=== PATIENT | female | born 1965 | race Caucasian/White ===

== ENCOUNTER 2020-03-12 11:22 | Inpatient (IN) | payer SELFPAY ==
[2020-03-12] VITALS (13 sets, daily range): BP systolic 75–115; BP diastolic 51–67; PULSE 90–106; RESP 18–32; TEMP 37–39.1; O2SAT 91–99; BMI 24.3
--- NOTE | 2020-03-12 11:44 | XRR_ITS ---
PROCEDURE INFORMATION: Exam: XR Right Femur Exam date and time: 03/12/2020 12:11 PM Age: 54 years old Clinical indication: Other: Insect bite, foreign body TECHNIQUE: Imaging protocol: XR Right femur. Views: 2 views. COMPARISON: No relevant prior studies available. FINDINGS: Bones/joints: There is no acute fracture or dislocation. Mild degenerative changes of the right hip are noted. Soft tissues: No definite radiopaque foreign body is identified. XR/XR femur RT min 2V* [id number] IMPRESSION: No acute abnormality.
--- NOTE | 2020-03-12 12:13 | W.ED.GENADLT ---
HPI - General Adult General: Chief complaint: General Medical Stated complaint: insect bite Time Seen by Provider: 03/12/20 11:40 Source: patient Mode of arrival: ambulatory Limitations: no limitations History of Present Illness: HPI narrative: Dnoa is a 54-year-old female who comes in complaining of a bite to her right anterior thigh. She has area of ecchymosis surrounding by swelling and some mild erythema. She does not remember being poked with anything or having a puncture wound. She is uncertain what it is that may have bitten her. Patient had a fever last night up to 101. She is been nausea but denies any vomiting, chills, dysuria, cough, headache or other complaint. She is unaware of anything that makes her symptoms better or worse. She denies having any chronic medical problems or surgeries. Associated symptoms: Reports nausea and rash; Deny chest pain, dyspnea, headache(s), palpitations, syncope or vomiting Review of Systems Const: Reports: fever(s) Eyes: Denies: change in vision ENMT: Denies: throat pain Card: Denies: chest pain, palpitations, syncope, pre-syncope or dyspnea on exertion Resp: Denies: dyspnea, productive cough or non-productive cough GI: Reports: nausea; Denies: abdominal pain, vomiting or diarrhea : Denies: flank pain, dysuria, urinary frequency or urinary urgency Musc: Denies: neck pain, back pain or extremity pain Skin/Breast: Reports: rash; Denies: pruritus Neuro: Denies: headache(s), numbness in extremities, weakness in extremities or dizziness Alo/Lymph: Denies: easy bruising or easy bleeding All/Imm: Denies: urticaria PFSH ED PFSH: Medical History No active medical problems Surgical History (Updated 03/12/20 @ 16:09 by Gagandeep Masterson MD) History of No history of previous surgery Family History (Updated 03/12/20 @ 16:09 by Gagandeep Masterson MD) Other Cancer Social History (Updated 03/12/20 @ 16:09 by Gagandeep Masterson MD) Smoking and tobacco status: current every day smoker Alcohol intake: current Alcohol intake frequency: few times a month Substance/Drug Use: never Physical Exam Const: COMMON NORMALS: no acute distress, patient oriented x3, no limitations, healthy appearing and well nourished GENERAL APPEARANCE: cooperative, well kempt and well developed HENMT: COMMON NORMALS: normocephalic, atraumatic, external ears normal, EAC's normal and Normal external nose present HEAD & SCALP: normal to inspection, normocephalic and atraumatic FACE & SINUS: normal facial exam and face symmetric NOSE: Normal external nose present and Normal nares present EXTERNAL EAR: Yes external ears normal EXTERNAL AUDITORY CANAL: EAC's normal MOUTH: Normal oral and palatal mucosa present, lip normal and tongue normal Eye: COMMON NORMALS: Equal, round and reactive pupils present and conjunctivae normal GENERAL EYE: appearance normal, both eyes and all related structures ALIGNMENT: Yes alignment normal PERIORBITAL: periorbital findings normal EYELID: eyelids normal CONJUNCTIVA: Yes conjunctivae normal SCLERA: sclerae normal PUPIL: Yes Equal, round and reactive pupils present Neck/C-Spine: COMMON NORMALS: full ROM, no lymphadenopathy, supple, no meningeal signs and no JVD GENERAL: Yes normal visual inspection and Yes trachea midline Chest: COMMONS NORMALS: normal inspection of the chest and normal palpation of entire chest wall Resp: COMMON NORMALS: normal respiratory effort, No retractions and No use of accessory muscles EFFORT & INSPECTION: Yes able to speak in complete sentences and Yes symmetric chest movement AUSCULTATION: no crackles, no rales, no rhonchi and no wheezes Cardio: COMMON NORMALS: no JVD, regular rate, regular rhythm, S1 normal heart sound present and S2 normal heart sound present RATE: regular rate RHYTHM: regular rhythm HEART SOUNDS: S1 normal heart sound present, S2 normal heart sound present, no click, no gallops, no murmurs, no rubs and abnormal split S2 GI: COMMON NORMALS: Soft to palpation and No hepatosplenomegaly present PALPATION: Yes Soft to palpation, No Tenderness to palpation present (GI), No Guarding due to palpation present (GI), No Rigid due to palpation, Yes No hepatosplenomegaly present, No Hernia present, No Palpable mass present and No Pulsatile mass present : COMMON NORMALS: Yes no CVA tenderness BLADDER/KIDNEY EXAM: Yes no CVA tenderness EXTERNAL FEMALE EXAM: No Hernia present Back/Pelvis: COMMON NORMALS: no CVA tenderness, thoracic and lumbar spine normal to inspection, no thoracic nor lumbar tenderness and thoraco-lumbar ROM normal Extremity: COMMON NORMALS: normal to inspection, full ROM, capillary refill normal, no joint enlargement, no clubbing, cyanosis or edema and no calf tenderness Neuro: COMMON NORMALS: patient oriented x3, CN's II-XII intact bilaterally, moves all extremities, no focal motor deficits and no sensory deficits noted MENINGEAL SIGNS: Yes no meningeal signs SPEECH: speech normal Psych: COMMON NORMALS: mental status grossly normal, Normal thought process present, cooperative, normal affect, speech normal and activity/motor behavior normal APPEARANCE: Yes well kempt SPEECH: Yes normal speech THOUGHT PROCESS: Normal thought process present Skin: COMMON NORMALS: no jaundice, no petechiae and no mottling NARRATIVE SKIN EXAM: Small area of ecchymosis surrounded by a large area of erythema and raised tissue on the anterior right thigh. No evidence of abscess by palpation. No fluctuance. No petechiae or purpura. Course Vital Signs: Vital signs: Vital Signs Temperature 99.0 F 03/12/20 20:00 Pulse Rate 95 03/12/20 20:00 Respiratory Rate 20 H 03/12/20 20:00 Blood Pressure 105/63 03/12/20 20:00 Pulse Oximetry 97 03/12/20 20:00 MDM - General Adult MDM Narrative: Medical decision making narrative: Upon doing some basic investigation prior to discharge the patient became diaphoretic, borderline febrile and hypotensive. Concerned that this bite may have caused some type of systemic reaction or envenomation. A systemic reaction to a brown recluse spider bite among other things as possible. The patient is adamant it is no snakebite and I do not see 2 fang gomez. I have given her a load of antibiotics along with vancomycin and Zosyn. I have contacted Dr. Masterson he will come to evaluate the patient in the ER. Lab Data: Attestation: I reviewed the patient's lab results. Labs: Lab Results 03/12/20 03/12/20 03/12/20 Range/Units 12:35 12:35 12:35 WBC 15.6 H (4.0-10.0) 10^3/ uL RBC 4.46 (4.1-5.3) 10^6/u L Hgb 13.1 (11.5-15.3) g/dL Hct 41.3 (37.0-47.0) % MCV 92.6 (81-99) fL MCH 29.4 (28.0-34.0) pg MCHC 31.7 (30.0-36.0) g/dL RDW 13.6 (12.1-15.1) % Plt Count 204 (130-400) 10^3/c mm MPV 10.7 H (7.4-10.4) fL Neut % (Auto) 96.3 % Lymph % (Auto) 1.2 % [place] % (Auto) 1.0 % Eos % (Auto) 0.6 % Baso % (Auto) 0.3 % Neut # (Auto) 15.0 H (1.8-7.7) 10^3/u L Lymph # (Auto) 0.2 L (0.8-4.8) 10^3/u L [place] # (Auto) 0.2 (0.2-0.9) 10^3/u L Eos # (Auto) 0.1 (0.0-0.8) 10^3/u L Baso # (Auto) 0.0 (0.0-0.1) 10^3/u L Nucleated RBC % (a uto) 0 % Nucleated RBCs # 0.0 /100WBC Haptoglobin (30-200) mg/L PT 17.10 H (10.5-13.3) SECO NDS INR 1.35 H (0.8-1.2) APTT 29.4 (23.9-36.7) SECO NDS Sodium 138 (136-145) mmol/L Potassium 3.6 (3.5-5.1) mmol/L Chloride 99 (98-107) mmol/L Carbon Dioxide 21 L (22-29) mmol/L Anion Gap 21.6 H (5-19) BUN 16 (6-20) mg/dL Creatinine 1.0 H (0.5-0.9) mg/dL GFR Calculation 57.6 L (90-130) mL/min Glucose 101 (65-115) mg/dL Calculated Osmolal ity 282 L (285-295) mOsm/k g Lactic Acid (0.5-2.2) mmol/L Calcium 9.4 (8.5-10.5) mg/dL Magnesium (1.7-2.3) mg/dL Total Bilirubin 1.3 H (0.15-1.2) mg/dL AST 115 H (0-32) U/L ALT 87 H (0-33) U/L Alkaline Phosphata se 83 (35-105) IU/L Lactate Dehydrogen ase (135-214) U/L Creatine Kinase (26-192) U/L Troponin T Baselin e (0-10) ng/L Troponin T 120 Min elim ira (0-10) ng/L Delta Troponin T (0-10) ABS# Total Protein 7.3 (6.6-8.7) g/dL Albumin 4.4 (3.5-5.2) g/dL Globulin 2.9 (1.3-4.6) g/dL Procalcitonin (0-0.5) ng/mL Urine Color (Yellow) Urine Appearance (CLEAR) Urine pH (5-7) Ur Specific Gravit y (1.005-1.030) Urine Protein (Negative) Urine Glucose (UA) (Normal) Urine Ketones (Negative) Urine Blood (Negative) Urine Nitrate (Negative) Urine Bilirubin (NEGATIVE) Urine Urobilinogen (Negative) mg/dL Ur Leukocyte Shea ase (Negative) Urine RBC (0-2) /hpf Urine WBC (0-5) /hpf Ur Squamous Epith Cells (0-5) Ur Transition Epit h Cell /hpf Urine Bacteria (NONE) Hepatitis A IgM Ab (Nonreactive) Hep Bs Antigen (Nonreactive) Hep Bs Antibody (0-8.5) Hep B Core Total A b (Nonreactive) Hepatitis C Antibo dy (Nonreactive) 03/12/20 03/12/20 03/12/20 Range/Units 12:35 12:35 14:30 WBC (4.0-10.0) 10^3/ uL RBC (4.1-5.3) 10^6/u L Hgb (11.5-15.3) g/dL Hct (37.0-47.0) % MCV (81-99) fL MCH (28.0-34.0) pg MCHC (30.0-36.0) g/dL RDW (12.1-15.1) % Plt Count (130-400) 10^3/c mm MPV (7.4-10.4) fL Neut % (Auto) % Lymph % (Auto) % [place] % (Auto) % Eos % (Auto) % Baso % (Auto) % Neut # (Auto) (1.8-7.7) 10^3/u L Lymph # (Auto) (0.8-4.8) 10^3/u L [place] # (Auto) (0.2-0.9) 10^3/u L Eos # (Auto) (0.0-0.8) 10^3/u L Baso # (Auto) (0.0-0.1) 10^3/u L Nucleated RBC % (a uto) % Nucleated RBCs # /100WBC Haptoglobin (30-200) mg/L PT (10.5-13.3) SECO NDS INR (0.8-1.2) APTT (23.9-36.7) SECO NDS Sodium (136-145) mmol/L Potassium (3.5-5.1) mmol/L Chloride (98-107) mmol/L Carbon Dioxide (22-29) mmol/L Anion Gap (5-19) BUN (6-20) mg/dL Creatinine (0.5-0.9) mg/dL GFR Calculation (90-130) mL/min Glucose (65-115) mg/dL Calculated Osmolal ity (285-295) mOsm/k g Lactic Acid 2.9 H (0.5-2.2) mmol/L Calcium (8.5-10.5) mg/dL Magnesium (1.7-2.3) mg/dL Total Bilirubin (0.15-1.2) mg/dL AST (0-32) U/L ALT (0-33) U/L Alkaline Phosphata se (35-105) IU/L Lactate Dehydrogen ase (135-214) U/L Creatine Kinase (26-192) U/L Troponin T Baselin e 6 (0-10) ng/L Troponin T 120 Min elim ira (0-10) ng/L Delta Troponin T (0-10) ABS# Total Protein (6.6-8.7) g/dL Albumin (3.5-5.2) g/dL Globulin (1.3-4.6) g/dL Procalcitonin (0-0.5) ng/mL Urine Color Brown (Yellow) Urine Appearance Cloudy (CLEAR) Urine pH 5 (5-7) Ur Specific Gravit y 1.020 (1.005-1.030) Urine Protein Trace (Negative) Urine Glucose (UA) Norm (Normal) Urine Ketones 1+ H (Negative) Urine Blood 2+ H (Negative) Urine Nitrate Negative (Negative) Urine Bilirubin 1+ H (NEGATIVE) Urine Urobilinogen 4 H (Negative) mg/dL Ur Leukocyte Shea ase 2+ H (Negative) Urine RBC 5-10 H (0-2) /hpf Urine WBC 25-40 H (0-5) /hpf Ur Squamous Epith Cells 15-25 H (0-5) Ur Transition Epit h Cell 0-4 /hpf Urine Bacteria 2+ H (NONE) Hepatitis A IgM Ab (Nonreactive) Hep Bs Antigen (Nonreactive) Hep Bs Antibody (0-8.5) Hep B Core Total A b (Nonreactive) Hepatitis C Antibo dy (Nonreactive) 03/12/20 03/12/20 03/12/20 Range/Units 14:34 14:34 14:34 WBC (4.0-10.0) 10^3/ uL RBC (4.1-5.3) 10^6/u L Hgb (11.5-15.3) g/dL Hct (37.0-47.0) % MCV (81-99) fL MCH (28.0-34.0) pg MCHC (30.0-36.0) g/dL RDW (12.1-15.1) % Plt Count (130-400) 10^3/c mm MPV (7.4-10.4) fL Neut % (Auto) % Lymph % (Auto) % [place] % (Auto) % Eos % (Auto) % Baso % (Auto) % Neut # (Auto) (1.8-7.7) 10^3/u L Lymph # (Auto) (0.8-4.8) 10^3/u L [place] # (Auto) (0.2-0.9) 10^3/u L Eos # (Auto) (0.0-0.8) 10^3/u L Baso # (Auto) (0.0-0.1) 10^3/u L Nucleated RBC % (a uto) % Nucleated RBCs # /100WBC Haptoglobin 134.0 (30-200) mg/L PT (10.5-13.3) SECO NDS INR (0.8-1.2) APTT (23.9-36.7) SECO NDS Sodium (136-145) mmol/L Potassium (3.5-5.1) mmol/L Chloride (98-107) mmol/L Carbon Dioxide (22-29) mmol/L Anion Gap (5-19) BUN (6-20) mg/dL Creatinine (0.5-0.9) mg/dL GFR Calculation (90-130) mL/min Glucose (65-115) mg/dL Calculated Osmolal ity (285-295) mOsm/k g Lactic Acid (0.5-2.2) mmol/L Calcium (8.5-10.5) mg/dL Magnesium 1.4 L (1.7-2.3) mg/dL Total Bilirubin (0.15-1.2) mg/dL AST (0-32) U/L ALT (0-33) U/L Alkaline Phosphata se (35-105) IU/L Lactate Dehydrogen ase 259 H (135-214) U/L Creatine Kinase 71 (26-192) U/L Troponin T Baselin e (0-10) ng/L Troponin T 120 Min elim ira 6.06 (0-10) ng/L Delta Troponin T 0.06 (0-10) ABS# Total Protein (6.6-8.7) g/dL Albumin (3.5-5.2) g/dL Globulin (1.3-4.6) g/dL Procalcitonin (0-0.5) ng/mL Urine Color (Yellow) Urine Appearance (CLEAR) Urine pH (5-7) Ur Specific Gravit y (1.005-1.030) Urine Protein (Negative) Urine Glucose (UA) (Normal) Urine Ketones (Negative) Urine Blood (Negative) Urine Nitrate (Negative) Urine Bilirubin (NEGATIVE) Urine Urobilinogen (Negative) mg/dL Ur Leukocyte Shea ase (Negative) Urine RBC (0-2) /hpf Urine WBC (0-5) /hpf Ur Squamous Epith Cells (0-5) Ur Transition Epit h Cell /hpf Urine Bacteria (NONE) Hepatitis A IgM Ab Non-reactive (Nonreactive) Hep Bs Antigen Non-reactive (Nonreactive) Hep Bs Antibody 3.5 (0-8.5) Hep B Core Total A b Non-reactive (Nonreactive) Hepatitis C Antibo dy Non-reactive (Nonreactive) 03/12/20 Range/Units 14:34 WBC (4.0-10.0) 10^3/ uL RBC (4.1-5.3) 10^6/u L Hgb (11.5-15.3) g/dL Hct (37.0-47.0) % MCV (81-99) fL MCH (28.0-34.0) pg MCHC (30.0-36.0) g/dL RDW (12.1-15.1) % Plt Count (130-400) 10^3/c mm MPV (7.4-10.4) fL Neut % (Auto) % Lymph % (Auto) % [place] % (Auto) % Eos % (Auto) % Baso % (Auto) % Neut # (Auto) (1.8-7.7) 10^3/u L Lymph # (Auto) (0.8-4.8) 10^3/u L [place] # (Auto) (0.2-0.9) 10^3/u L Eos # (Auto) (0.0-0.8) 10^3/u L Baso # (Auto) (0.0-0.1) 10^3/u L Nucleated RBC % (a uto) % Nucleated RBCs # /100WBC Haptoglobin (30-200) mg/L PT (10.5-13.3) SECO NDS INR (0.8-1.2) APTT (23.9-36.7) SECO NDS Sodium (136-145) mmol/L Potassium (3.5-5.1) mmol/L Chloride (98-107) mmol/L Carbon Dioxide (22-29) mmol/L Anion Gap (5-19) BUN (6-20) mg/dL Creatinine (0.5-0.9) mg/dL GFR Calculation (90-130) mL/min Glucose (65-115) mg/dL Calculated Osmolal ity (285-295) mOsm/k g Lactic Acid (0.5-2.2) mmol/L Calcium (8.5-10.5) mg/dL Magnesium (1.7-2.3) mg/dL Total Bilirubin (0.15-1.2) mg/dL AST (0-32) U/L ALT (0-33) U/L Alkaline Phosphata se (35-105) IU/L Lactate Dehydrogen ase (135-214) U/L Creatine Kinase (26-192) U/L Troponin T Baselin e (0-10) ng/L Troponin T 120 Min elim ira (0-10) ng/L Delta Troponin T (0-10) ABS# Total Protein (6.6-8.7) g/dL Albumin (3.5-5.2) g/dL Globulin (1.3-4.6) g/dL Procalcitonin 3.14 H (0-0.5) ng/mL Urine Color (Yellow) Urine Appearance (CLEAR) Urine pH (5-7) Ur Specific Gravit y (1.005-1.030) Urine Protein (Negative) Urine Glucose (UA) (Normal) Urine Ketones (Negative) Urine Blood (Negative) Urine Nitrate (Negative) Urine Bilirubin (NEGATIVE) Urine Urobilinogen (Negative) mg/dL Ur Leukocyte Shea ase (Negative) Urine RBC (0-2) /hpf Urine WBC (0-5) /hpf Ur Squamous Epith Cells (0-5) Ur Transition Epit h Cell /hpf Urine Bacteria (NONE) Hepatitis A IgM Ab (Nonreactive) Hep Bs Antigen (Nonreactive) Hep Bs Antibody (0-8.5) Hep B Core Total A b (Nonreactive) Hepatitis C Antibo dy (Nonreactive) Imaging Data^: Right Femur: Radiologist's impression: [address] [address] XRay Report Signed Patient: Dona Rojas Unit #: [id number] : 1965 Age/Sex: 54 / F ADM Date: 03/12/20 Loc: ER Room/Bed: Attending Dr: Ordering Provider/Ordering MD: Tawny Canas DO Date of Service: 03/12/20 Procedure(s): XR femur RT min 2V* [id number] Accession Number(s): [id number] Report Number: [id number] PROCEDURE INFORMATION: Exam: XR Right Femur Exam date and time: 03/12/2020 12:11 PM Age: 54 years old Clinical indication: Other: Insect bite, foreign body TECHNIQUE: Imaging protocol: XR Right femur. Views: 2 views. COMPARISON: No relevant prior studies available. FINDINGS: Bones/joints: There is no acute fracture or dislocation. Mild degenerative changes of the right hip are noted. Soft tissues: No definite radiopaque foreign body is identified. XR/XR femur RT min 2V* 14585 IMPRESSION: No acute abnormality. Dictated By: Jesus Manuel Wild MD Signed By: Jesus Manuel Wild MD Signed Date/Time: 03/12/201249 DD/ 1248 Ultrasound soft tissue, Right Thigh: Radiologist's impression: [place] [address] Ultrasound Report Signed Patient: Dona Rojas Unit #: [id number] : 1965 Age/Sex: 54 / F ADM Date: 03/12/20 Loc: ER Room/Bed: Attending Dr: Ordering Provider/Ordering MD: Tawny Canas DO Date of Service: 03/12/20 Procedure(s): US soft tissue/extremity 79244 Accession Number(s): [id number] Report Number: [id number] WS: [id number] ULTRASOUND SOFT TISSUES RIGHT thigh HISTORY: Pain. Soft tissue wound. COMPARISON: None available. TECHNIQUE: 2-D and color Doppler imaging is submitted. Soft tissue edema in the area of the injury. There is no focal collection or large hematoma. No mass. US/US soft tissue/extremity [id number] IMPRESSION: Mild soft tissue edema at the site of the soft tissue injury. Dictated By: Justyna Brito DO Signed By: Justyna Brito DO Signed Date/Time: 03/12/20 125 DD/ 1249 EKG Data^: EKG 1: Attestation: I personally reviewed and interpreted this EKG as follows: EKG interpretation date: 03/12/20 EKG interpretation time: 14:00 Interpretation: Normal sinus rhythm 105 beats a minute, ST segment depression in 2, 3, aVF, V3 through V6. Computer generated interpretation: Femur X-Ray 03/12/20 11:44 IMPRESSION: No acute abnormality. Soft Tissue Ultrasound 03/12/20 12:29 IMPRESSION: Mild soft tissue edema at the site of the soft tissue injury. Abdomen Ultrasound 03/12/20 14:15 IMPRESSION: Normal complete abdomen ultrasound. Discharge Plan Discharge Patient Disposition: Admitted As Inpatient Admit Provider: Gagandeep Masterson Clinical Impression: Acute hypotension, Envenomation Condition: Stable Discharge Date/Time: 03/12/20 17:39 Coding Level of Care Code ED Incident Coordinator for Chg Fwd Exam Comprehensive
[2020-03-12] MEDS: amoxicillin-clav 875-125 mg Tablet 1 TAB PO (12:22)
[2020-03-12] MEDS: doxycycline 100 mg Tablet 200 MG PO (12:23)
[2020-03-12] MEDS: ondansetron 4 MG Tablet PO (12:23)
--- NOTE | 2020-03-12 12:29 | US_ITS ---
WS: [id number] ULTRASOUND SOFT TISSUES RIGHT thigh HISTORY: Pain. Soft tissue wound. COMPARISON: None available. TECHNIQUE: 2-D and color Doppler imaging is submitted. Soft tissue edema in the area of the injury. There is no focal collection or large hematoma. No mass. US/ soft tissue/extremity [id number] IMPRESSION: Mild soft tissue edema at the site of the soft tissue injury.
[2020-03-12] MEDS: lactated ringers 1,000 ML 999 ML IV (12:48)
[2020-03-12 13:10] LABS: Alanine Aminotransferase 87 U/L (0-33); Albumin Level 4.4 g/dL (3.5-5.2); Alkaline Phosphatase 83 IU/L (35-105); Anion Gap 21.6 (5-19); Aspartate Amino Transferase 115 U/L (0-32); Blood Urea Nitrogen 16 mg/dL (6-20); Calcium 9.4 mg/dL (8.5-10.5); Carbon Dioxide 21 mmol/L (22-29); Chloride 99 mmol/L (98-107); Globulin 2.9 g/dL (1.3-4.6); Glomerular Filtration Rate 57.6 mL/min (90-130); Glucose 101 mg/dL (65-115); Osmolality Calculated 282 mOsm/kg (285-295); Potassium 3.6 mmol/L (3.5-5.1); Sodium 138 mmol/L (136-145); Total Bilirubin 1.3 mg/dL (0.15-1.2); Total Protein 7.3 g/dL (6.6-8.7)
[2020-03-12 13:28] LABS: Basophils % 0.3 %; Eosinophils # 0.1 10^3/uL (0.0-0.8); Eosinophils % 0.6 %; Hematocrit 41.3 % (37.0-47.0); Hemoglobin 13.1 g/dL (11.5-15.3); Lymphocytes # 0.2 10^3/uL (0.8-4.8); Lymphocytes % 1.2 %; Mean Corpuscular HGB Conc 31.7 g/dL (30.0-36.0); Mean Corpuscular Hemoglobin 29.4 pg (28.0-34.0); Mean Corpuscular Volume 92.6 fL (81-99); Mean Platelet Volume 10.7 fL (7.4-10.4); Monocytes # 0.2 10^3/uL (0.2-0.9); Neutrophils % 96.3 %; Nucleated Red Blood Cells % 0 %; Platelet Count 204 10^3/cmm (130-400); Red Blood Count 4.46 10^6/uL (4.1-5.3); Red Cell Distribution Width 13.6 % (12.1-15.1); White Blood Count 15.6 10^3/uL (4.0-10.0)
[2020-03-12 13:33] LABS: Lactic Sepsis W/Reflex 2.9 mmol/L (0.5-2.2)
--- NOTE | 2020-03-12 13:47 | ECG_ITS ---
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 Measurements Intervals [place] Rate: 105 P: 66 PA: 151 QRS: 81 QRSD: 82 T: 12 QT: 279 QTc: 370 Interpretive Statements SINUS TACHYCARDIA WITH OCCASIONAL SUPRAVENTRICULAR PREMATURE COMPLEXES ST DEVIATION AND MODERATE T-WAVE ABNORMALITY, CONSIDER ANTEROLATERAL ISCHEMIA [-0.1+ mV T WAVE IN V3-V6] No previous ECG available for comparison Electronically Signed On 03-12-2020 23:45:06 CDT by Jean-Pierre Sinclair M.D. [id number] f
[2020-03-12 13:51] LABS: INR 1.35 (0.8-1.2); Partial Thromboplastin Time 29.4 SECONDS (23.9-36.7)
[2020-03-12] MEDS: piperacillin-tazobactam 3.375 GM in sodium chloride 0.9% (plus) 50 ML IV ×2 (13:55→20:22)
[2020-03-12 14:05] LABS: Troponin(5th) Baseline 6 ng/L (0-10)
[2020-03-12] MEDS: vancomycin 1,000 MG in sodium chloride 0.9% 250 ML 250 MG IV (14:05)
[2020-03-12] MEDS: ibuprofen 200 mg Tablet 400 MG PO (14:15)
--- NOTE | 2020-03-12 14:15 | US_ITS ---
WS: [id number] Complete ABDOMINAL ULTRASOUND HISTORY: Abdominal Pain COMPARISON: None available. Liver: 12.8 cm in length. Liver is normal size and echogenicity with no mass or intrahepatic dilatati on. Normal flow in the portal vein. Gallbladder: Normally distended with no gallstones, wall thickening or pericholecystic fluid. Gallbladder wall thickness: 0.2 cm. Pancreas: Normal size and echogenicity. CBD: 0.4 cm. Right kidney: 11.0 cm x 5.6 cm x 5.4 cm. No mass, cortical thickening or hydronephrosis. Left kidney: 11.3 cm x 5.3 cm x 5.0 cm. No mass, cortical thickening or hydronephrosis. Spleen: Normal size and echogenicity. Abdominal aorta and IVC are within normal limits. No ascites. US/US abdomen complete* [id number] IMPRESSION: Normal complete abdomen ultrasound.
[2020-03-12] MEDS: sodium chloride 0.9% 1,000 ML 150 ML IV ×2 (14:38→20:22)
[2020-03-12 14:57] LABS: Troponin 5 2HR 6.06 ng/L (0-10); Troponin 5 2HR Delta 0.06 ABS# (0-10)
[2020-03-12 15:12] LABS: Bilirubin Urine 1+ (NEGATIVE); Blood Urine 2+ (Negative); Glucose Urine UA Norm (Normal); Ketones Urine 1+ (Negative); Nitrate Urine Negative (Negative); Protein Urine Trace (Negative); Urine Appearance Cloudy (CLEAR); Urine Color Brown (Yellow); pH Urine 5 (5-7)
[2020-03-12 15:13] LABS: Leukocyte Esterase Urine 2+ (Negative); Urobilinogen Urine 4 mg/dL (Negative)
[2020-03-12 15:14] LABS: Squamous Epithelial Cell Urine 15-25 (0-5)
[2020-03-12 15:15] LABS: Add Urine Culture? No; Bacteria Urine 2+; Transitional Epi Cells Urine 0-4 /hpf; WBC Urine 25-40 /hpf (0-5)
[2020-03-12 15:19] LABS: Hepatitis A Antibody IgM Non-Reactive (Nonreactive); Hepatitis B Core AB, Total Non-Reactive (Nonreactive); Hepatitis B Surface AB 3.5 (0-8.5); Hepatitis B Surface Antigen Non-Reactive (Nonreactive); Hepatitis C Virus Antibody Non-Reactive (Nonreactive)
--- NOTE | 2020-03-12 15:47 | ECG_ITS ---
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 Measurements Intervals [place] Rate: 95 P: 62 ID: [id number] QRS: 86 QRSD: 85 T: 51 QT: 328 QTc: 413 Interpretive Statements SINUS RHYTHM NONSPECIFIC T-WAVE ABNORMALITY Compared to ECG 03/12/2020 14:00:45 Sinus tachycardia no longer present Possible ischemia no longer present T-wave abnormality still present Electronically Signed On 03-13-2020 17:14:17 CDT by Jaylin Canseco M.D. [id number]
[2020-03-12 16:02] LABS: Creatine Phosphokinase 71 U/L (26-192); Lactate Dehydrogenase 259 U/L (135-214); Magnesium 1.4 mg/dL (1.7-2.3)
--- NOTE | 2020-03-12 16:07 | P.HP_ITS ---
Providers/Chief Complaint Admitting Physician: Gagandeep Masterson MD Chief Complaint: insect bite History of Present Illness Dona Rojas is a 54 year old female who presents to the emergency department after having a fever, and noticing a bruise-like area on her right upper thigh. She does not remember any specific trauma, insect bite, spider bite. She states it itched slightly but has not been horribly painful. However, during her ultrasound she did have pain in that area, an episode of hypotension, and some diaphoresis. She denied any chest discomfort or shortness of breath. She reports no significant past medical history. She denies any cough or COVID exposure. Review of Systems General: Reports: 10 or more systems reviewed and unremarkable except in HPI and below Const: Reports: fever(s) and chills Eyes: Denies: change in vision ENMT: Denies: throat pain Card: Denies: chest pain Resp: Denies: dyspnea GI: Denies: abdominal pain : Denies: flank pain Musc: Reports: extremity pain Skin/Breast: Reports: rash Neuro: Denies: headache(s) Psych: Denies: anxiety Endo: Denies: polyuria All/Imm: Denies: urticaria Medications/Allergies Home Medications Medication Instructions Recorded Confirmed Last Taken Type No Known Home Medications 03/12/20 03/12/20 Unknown History Allergies Allergy/AdvReac Type Severity Reaction Status Date / Time No Known Allergies Allergy Verified 03/12/20 11:46 PFSH Acute PFSH: Medical History No active medical problems Surgical History (Updated 03/12/20 @ 16:09 by Gagandeep Masterson MD) History of No history of previous surgery Family History (Updated 03/12/20 @ 16:09 by Gagandeep Masterson MD) Other Cancer Social History (Updated 03/12/20 @ 16:09 by Gagandeep Masterson MD) Smoking and tobacco status: current every day smoker Alcohol intake: current Alcohol intake frequency: few times a month Substance/Drug Use: never Vitals/I&O/Wt Last Vital Signs Temp 102.4 F H 03/12/20 14:06 Pulse 95 03/12/20 15:31 Resp 25 H 03/12/20 15:31 BP 104/57 03/12/20 15:31 Pulse Ox 95 03/12/20 15:31 03/12/20 03/12/20 03/12/20 06:59 14:59 22:59 Intake Total 2150 / 2150 250 / 2400 Balance 2149 / 2149 250 / 2400 Weight last 48 hrs Weight 70.307 kg Physical Exam Narrative: EXAM NARRATIVE: General exam is a white female, in no apparent distress. She is febrile. She has received several boluses of fluids and her blood pressure is currently adequate and perfusion appears acceptable HEENT: Pupils equally round. Oropharynx clear. Neck is supple no lymphadenopathy or thyromegaly Cardiovascular regular rate and rhythm, no murmur. Lungs clear no wheezing or crackles Abdomen is soft with positive bowel sounds. No obvious organomegaly was deferred Extremities no cyanosis clubbing or edema. Small circular ecchymotic area right upper thigh with some surrounding induration is noted. Skin see above findings Neuro no focal deficits Sepsis: Is patient septic: Yes Focused sepsis exam performed: Yes Focused sepsis exam: Focused sepsis exam done. Date exam was performed: 03/12/20 Time exam was performed: 15:29 Data : 03/12/20 12:35 03/12/20 12:35 Other Labs: Initial EKG demonstrated sinus tachycardia, ST depression V3 through 6 as well as inferiorly Micro: Microbiology 03/12/20 13:20 Blood Culture - Preliminary Blood SPECIMEN COLLECTED 03/12/20 13:15 Blood Culture - Preliminary Blood SPECIMEN COLLECTED Other data: Urinalysis appears contaminated. Magnesium is low. INR elevated at 1.35. Liver function tests with elevated bilirubin, AST, ALT. Soft tissue ultrasound demonstrated edema but no obvious abscess. Femur x-ray negative. Initial troponin negative A&P Assessment and plan (1) Acute hypotension: Fluid resuscitation started in the emergency department secondary to elevated lactate, and hypotension. This is corrected her hypotension. Technically, she meets sepsis criteria with hypotension, leukocytosis, possible site of infection right thigh. I think this is likely secondary to envenomation from spider bite but cannot completely rule out bacterial infection at this time. Check haptoglobin, LDH, procalcitonin. Continue vancomycin and Zosyn currently. Status: Acute (2) Leukocytosis: See above, continue to monitor Status: Acute (3) Transaminitis: Check hepatitis panel, gallbladder ultrasound Status: Acute Additional A&P Information Full code SCDs for DVT prophylaxis. Concerned with elevated INR. Reevaluate in a.m. Attestations Medical Necessity Statement*: Will need greater than 2 midnight stay for treatment of hypotension, sepsis Time Spent in Patient Care: Greater than 35 minutes Coding Level of Care Code Acute Dragline Oiler for Chg Fwd Diagnoses Acute hypotension I95.9 Leukocytosis D72.829 Transaminitis R74.0
[2020-03-12] MEDS: magnesium sulfate premix 2 GM/50 ML PIGGYBACK IV (16:32)
[2020-03-12 17:17] LABS: Procalcitonin 3.14 ng/mL (0-0.5)
[2020-03-12 18:49] LABS: Troponin 5 6HR 8.72 ng/L (0-10); Troponin 5 6HR Delta 2.72 ng/L (0-12)
[2020-03-12] MEDS: ondansetron 2 mg/ML SDV 2 mL 4 MG IVP (22:49)
[2020-03-13] VITALS (8 sets, daily range): BP systolic 102–127; BP diastolic 58–74; PULSE 94–110; RESP 18–24; TEMP 37.3–39.3; O2SAT 94–99
[2020-03-13] MEDS: sodium chloride 0.9% 1,000 ML 150 ML IV ×3 (02:13→20:15)
[2020-03-13] MEDS: vancomycin 1,000 MG in sodium chloride 0.9% 250 ML 250 MG IV ×2 (02:13→13:04)
[2020-03-13] MEDS: piperacillin-tazobactam 3.375 GM in sodium chloride 0.9% (plus) 50 ML IV ×3 (03:57→21:54)
[2020-03-13] MEDS: acetaminophen 325 mg Tablet 650 MG PO ×2 (03:57→16:12)
[2020-03-13 05:30] LABS: Basophils % 0.3 %; Eosinophils # 0.1 10^3/uL (0.0-0.8); Eosinophils % 1.9 %; Hematocrit 33.2 % (37.0-47.0); Hemoglobin 10.7 g/dL (11.5-15.3); Lymphocytes # 0.2 10^3/uL (0.8-4.8); Lymphocytes % 2.5 %; Mean Corpuscular HGB Conc 32.2 g/dL (30.0-36.0); Mean Corpuscular Hemoglobin 29.7 pg (28.0-34.0); Mean Corpuscular Volume 92.2 fL (81-99); Mean Platelet Volume 11.6 fL (7.4-10.4); Monocytes # 0.1 10^3/uL (0.2-0.9); Neutrophils # 6.4 10^3/uL (1.8-7.7); Neutrophils % 92.7 %; Nucleated Red Blood Cells % 0 %; Platelet Count 144 10^3/cmm (130-400); Red Cell Distribution Width 13.5 % (12.1-15.1); White Blood Count 6.9 10^3/uL (4.0-10.0)
[2020-03-13 05:56] LABS: Alanine Aminotransferase 87 U/L (0-33); Albumin Level 3.1 g/dL (3.5-5.2); Alkaline Phosphatase 119 IU/L (35-105); Anion Gap 13.4 (5-19); Aspartate Amino Transferase 60 U/L (0-32); Blood Urea Nitrogen 12 mg/dL (6-20); Calcium 8.1 mg/dL (8.5-10.5); Carbon Dioxide 21 mmol/L (22-29); Chloride 106 mmol/L (98-107); Globulin 2.2 g/dL (1.3-4.6); Glomerular Filtration Rate 74.5 mL/min (90-130); Glucose 98 mg/dL (65-115); Osmolality Calculated 280 mOsm/kg (285-295); Potassium 3.4 mmol/L (3.5-5.1); Sodium 137 mmol/L (136-145); Total Bilirubin 2.5 mg/dL (0.15-1.2); Total Protein 5.3 g/dL (6.6-8.7)
[2020-03-13 06:13] LABS: INR 1.48 (0.8-1.2)
[2020-03-13 06:31] LABS: Lactate Dehydrogenase 292 U/L (135-214)
[2020-03-13] MEDS: ondansetron 2 mg/ML SDV 2 mL 4 MG IVP ×2 (09:04→16:45)
--- NOTE | 2020-03-13 09:37 | CT_ITS ---
WS: [id number] CT ABDOMEN AND PELVIS WITH CONTRAST HISTORY: nausea, elevated LFT's TECHNIQUE: Imaging performed of the abdomen and pelvis with IV contrast. Single phase imaging of the abdomen. Coronal and sagittal reformats are submitted. All CT scans at [facility] use at least one of these dose optimization techniques: automated exposure control; mA and/or kV adjustment per patient size (includes targeted exams where dose is matched to clinical indication); or iterativ e reconstruction. IV CONTRAST: Omnipaque 300; 95 mL IV. Oral contrast: No DLP: 729.13 mGy.cm COMPARISON: No similar studies. Lower thorax: Benign granulomata LEFT lung base. Heart is normal size. Small hiatal hernia. Liver/biliary system: Normal size liver. No bile duct dilatation. No mass. Gallbladder: Contracted gallbladder. There is mild hyperemia involving the gallbladder wall. Pancreas: Normal. Spleen: Normal. Adrenal glands: Normal. Right kidney: Normal. Left kidney: Negative. Extrarenal pelvis with no obstruction. Aorta: Mild atherosclerosis aorta with no aneurysm. Lymphadenopathy: None. Free fluid: Very small amount of free fluid in the RIGHT pelvis. GI tract: The appendix is not definitely identified. There are no inflammatory changes in the RIGHT l ower quadrant. High density material in the small bowel is likely medicinal. There are a few scattere d diverticula in the sigmoid colon with no acute inflammation. Abdominal wall: Unremarkable abdominal wall. No hernia. Pelvis: Normal CT appearance of the uterus. Normally distended urinary bladder. Bones: Mild straightening of the normal lumbar lordosis. CT/CT abdomen pelvis w con* [id number] IMPRESSION: 1. Contracted gallbladder with mild gallbladder wall hyperemia. No stones are identified. Evaluate for possible acalculous cholecystitis. 2. No common bile duct dilatation or intrahepatic duct dilatation. 3. Appendix not identified. 4. Small amount of free fluid in the RIGHT pelvis. 5. Mild atherosclerosis aorta.
[2020-03-13] MEDS: potassium chloride ER 10 mEq Tablet 40 MEQ PO (09:45)
--- NOTE | 2020-03-13 10:01 | PC.CHAP ---
Pastoral Care Encounter/Spiritual Assessment Type of Contact [] Declined marketing campaign analyst visit [] Patient/Family/Request visit [] Outpatient visit [] Follow-up visit [] Physician referral [] Code/Alert [x] Routine visit [] Staff referral [] Actively dying [] Patient sleeping [] Family support [] [] Out of room [] Palliative care [] [] Receiving care in room [] Pre-surgical visit [] Trauma [] Long length of stay [] ICU visit [] Other: Relational/Emotional Strength [] Patient feels connected with others/family/visitors/staff [] Distress [] Loneliness/isolation [] Abandonment Spirituality of Patient [] Person of Nathalia [] Attends Mosque of their Nathalia [] Believes in Prayer [] Reads Bible or Oriental Orthodox materials [] There are Spiritual issues to be addressed Cook Mayonnaise Interventions [x] Prayer [x] Active listening [x] Non-anxious presence [x] Spiritual/emotional support [] Crisis/trauma care [] Spiritual counseling [] Bereavement support [] Provided bereavement packet [] Provided Bible/devotional materials [] Provided toy/stuffed animal, coloring book to patient or family member [] Provided Communion [] Anointing/[place] [] Salvation [x] Completed spiritual assessment [] Other: Impact on Illness or Injury [] Angry [] Fearful [x] Anxious [] Often cries [] Exhaustion [] Unable to work [] Unable to attend hinduism [] Unable to walk/stand [] Unable to read [] Unable to drive [] Unable to eat/drink [] Unable to sleep [] Unable to be with family [] Patient intubated [] Other: Summary Patient concerned about bite. Prayed for peace, and understanding of the situation. Time spent with patient 10 min
[2020-03-13] MEDS: pantoprazole 40 mg SDV IVP ×2 (10:44→21:54)
[2020-03-13] MEDS: iohexol 300 mg/mL 100 mL Btl IV (11:00)
--- NOTE | 2020-03-13 11:47 | PM.PN ---
Subjective Subjective: Interval history: Dona reports she has some nausea this morning. Leg hurts some, but it is not severe. She is able to ambulate. She denies any significant abdominal pain, back pain, chest pain or shortness of breath. Medications: Reviewed: Yes Vitals/I&O/Wt Last Vital Signs Temp 100.4 F H 03/13/20 11:11 Pulse 101 H 03/13/20 11:11 Resp 20 H 03/13/20 11:11 BP 115/69 03/13/20 11:11 Pulse Ox 96 03/13/20 11:11 03/12/20 03/13/20 03/13/20 22:59 06:59 14:59 Intake Total 1160 / 3310 927.5 / 4237.5 1120 / 1120 Balance 1160 / 3310 927.5 / 4237.5 1120 / 1120 Weight last 48 hrs Weight 70.307 kg Physical Exam Narrative: EXAM NARRATIVE: General exam is no apparent distress Cardiovascular regular rate and rhythm, no murmur. Lungs clear no wheezing or crackles Abdomen is soft with positive bowel sounds. No obvious organomegaly was deferred Extremities no cyanosis clubbing or edema. Small circular ecchymotic area right upper thigh with some surrounding induration is noted. Ecchymotic area slightly larger today. Data : 03/13/20 04:53 03/13/20 04:53 Micro: Microbiology 03/12/20 13:20 Blood Culture - Preliminary Blood SPECIMEN COLLECTED 03/12/20 13:15 Blood Culture - Preliminary Blood SPECIMEN COLLECTED A&P Assessment and plan (1) Acute hypotension: Fluid resuscitation started in the emergency department secondary to elevated lactate, and hypotension. This corrected her hypotension. Technically, she meets sepsis criteria with hypotension, leukocytosis, possible site of infection right thigh. I think this is likely secondary to envenomation from spider bite but cannot completely rule out bacterial infection at this time. Haptoglobin remains normal. However, INR, bilirubin, LDH slightly increased. Continue vancomycin and Zosyn currently. Await cultures Status: Acute (2) Leukocytosis: Improving Status: Acute (3) Transaminitis: Hepatitis panel, abdominal ultrasound normal. Secondary to elevated bilirubin, continued fever check CT abdomen pelvis Status: Acute Additional A&P Information Full code SCDs for DVT prophylaxis. Concerned with elevated INR. Attestations Medical Necessity Statement*: Needs continued hospitalization for IV antibiotics secondary to sepsis. Coding Level of Care Code Acute Job Placement Counselor for Chg Fwd Diagnoses Acute hypotension I95.9 Leukocytosis D72.829 Transaminitis R74.0
[2020-03-13] MEDS: enoxaparin 40 mg/0.4 mL Syringe SUBCUT (13:55)
[2020-03-14] MEDS: acetaminophen 325 mg Tablet 650 MG PO ×3 (00:11→22:13)
[2020-03-14 01:42] LABS: Vancomycin Trough 8.5 ug/mL (10-15)
--- NOTE | 2020-03-14 01:53 | PC.PHAR ---
Vancomycin trough level is 8.5. Dosage is increased to 1250mg IVPB ever 12 hours with another trough to be obtained before the fourth 1250mg dose to determine if further adjustment is needed.
[2020-03-14] MEDS: ondansetron 2 mg/ML SDV 2 mL 4 MG IVP (02:14)
[2020-03-14 03:53] VITALS: BP 108/62; PULSE 88; RESP 16; TEMP 37.3; O2SAT 97
[2020-03-14 05:06] LABS: Basophils % 0.2 %; Eosinophils # 0.1 10^3/uL (0.0-0.8); Eosinophils % 2.6 %; Hematocrit 28.6 % (37.0-47.0); Hemoglobin 9.2 g/dL (11.5-15.3); Lymphocytes # 0.3 10^3/uL (0.8-4.8); Lymphocytes % 5.8 %; Mean Corpuscular HGB Conc 32.2 g/dL (30.0-36.0); Mean Corpuscular Volume 93.2 fL (81-99); Mean Platelet Volume 11.6 fL (7.4-10.4); Monocytes # 0.1 10^3/uL (0.2-0.9); Monocytes % 1.9 %; Neutrophils # 4.8 10^3/uL (1.8-7.7); Neutrophils % 88.8 %; Nucleated Red Blood Cells % 0 %; Platelet Count 128 10^3/cmm (130-400); Red Blood Count 3.07 10^6/uL (4.1-5.3); Red Cell Distribution Width 13.7 % (12.1-15.1); White Blood Count 5.4 10^3/uL (4.0-10.0)
[2020-03-14] MEDS: piperacillin-tazobactam 3.375 GM in sodium chloride 0.9% (plus) 50 ML IV ×2 (05:27→17:22)
[2020-03-14 05:28] LABS: INR 1.14 (0.8-1.2)
[2020-03-14 05:31] LABS: Alanine Aminotransferase 62 U/L (0-33); Albumin Level 2.7 g/dL (3.5-5.2); Alkaline Phosphatase 152 IU/L (35-105); Anion Gap 14.1 (5-19); Aspartate Amino Transferase 41 U/L (0-32); Blood Urea Nitrogen 8 mg/dL (6-20); Calcium 7.8 mg/dL (8.5-10.5); Carbon Dioxide 20 mmol/L (22-29); Chloride 108 mmol/L (98-107); Creatine Phosphokinase 213 U/L (26-192); Globulin 2.4 g/dL (1.3-4.6); Glomerular Filtration Rate 103.8 mL/min (90-130); Glucose 111 mg/dL (65-115); Osmolality Calculated 285 mOsm/kg (285-295); Potassium 3.1 mmol/L (3.5-5.1); Sodium 139 mmol/L (136-145); Total Bilirubin 1.8 mg/dL (0.15-1.2); Total Protein 5.1 g/dL (6.6-8.7)
[2020-03-14] MEDS: sodium chloride 0.9% 1,000 ML 150 ML IV ×2 (05:31→13:39)
[2020-03-14 05:44] LABS: D Dimer 3.25 ug/mIFEU (0-0.59)
[2020-03-14 06:14] LABS: Slide Review Slide Review Perform
[2020-03-14 08:00] VITALS: BP 108/59; PULSE 69; RESP 16; TEMP 36.6; O2SAT 91
[2020-03-14] MEDS: pantoprazole 40 mg SDV IVP ×2 (09:29→22:34)
--- NOTE | 2020-03-14 10:27 | PM.PN ---
Subjective Subjective: Interval history: Patient reports she feels little bit better. Less nausea. A lummi of erythema has appeared around her ecchymotic site. Medications: Reviewed: Yes Vitals/I&O/Wt Last Vital Signs Temp 97.8 F 03/14/20 08:00 Pulse 69 03/14/20 08:00 Resp 16 03/14/20 08:00 BP 108/59 03/14/20 08:00 Pulse Ox 91 03/14/20 08:00 03/13/20 03/14/20 03/14/20 22:59 06:59 14:59 Intake Total 1400 / 2690 1400 / 4090 400 / 400 Balance 1400 / 2690 1400 / 4090 400 / 400 Weight last 48 hrs Weight 70.307 kg Physical Exam Narrative: EXAM NARRATIVE: General exam is no apparent distress Cardiovascular regular rate and rhythm, no murmur. Lungs clear no wheezing or crackles Abdomen is soft with positive bowel sounds. No obvious organomegaly was deferred Extremities no cyanosis clubbing or edema. Small circular ecchymotic area right upper thigh with some surrounding induration is noted. Ecchymotic area now darker, thin skin overlying, no drainage, surrounding faint erythematous area.. Data : 03/14/20 04:31 03/14/20 04:31 Micro: Microbiology 03/12/20 13:15 Blood Culture - Preliminary Blood NEGATIVE TO DATE 03/12/20 13:20 Blood Culture - Preliminary Blood NEGATIVE TO DATE A&P Assessment and plan (1) Acute hypotension: Fluid resuscitation started in the emergency department secondary to elevated lactate, and hypotension. This corrected her hypotension. Technically, she meets sepsis criteria with hypotension, leukocytosis, possible site of infection right thigh. I think this is likely secondary to envenomation from spider bite but cannot completely rule out bacterial infection at this time. Haptoglobin has been normal l. INR has been elevated but appears to be improving. Bilirubin drifting down. All consistent with some hemolysis and DIC. Continue vancomycin and Zosyn currently. Cultures negative to date Hopefully can discharge tomorrow if continues to improve Status: Acute (2) Leukocytosis: Resolved Fever appears to be improving Status: Acute (3) Transaminitis: Hepatitis panel, abdominal ultrasound normal. Secondary to elevated bilirubin, continued fever CT abdomen pelvis was checked which was normal. This is improving. Status: Acute Additional A&P Information Hypokalemia, supplement full code SCDs for DVT prophylaxis. Concerned with elevated INR. Attestations Medical Necessity Statement*: Will need continued hospitalization for close monitoring secondary to fever, systemic effects of spider envenomation. Coding Level of Care Code Acute [employer] Food [employer] Cooking for Chg Fwd Diagnoses Acute hypotension I95.9 Leukocytosis D72.829 Transaminitis R74.0
[2020-03-14 12:00] VITALS: BP 118/65; PULSE 89; RESP 16; TEMP 37.2; O2SAT 95
[2020-03-14] MEDS: potassium chloride ER 10 mEq Tablet 40 MEQ PO (12:03)
[2020-03-14] MEDS: enoxaparin 40 mg/0.4 mL Syringe SUBCUT (13:41)
[2020-03-14 15:50] VITALS: BP 159/74; PULSE 112; RESP 20; TEMP 39.4; O2SAT 94
--- NOTE | 2020-03-14 16:10 | XR_ITS ---
WS: [id number] PORTABLE CHEST HISTORY: cough COMPARISON: None available. Very slight elevation of the RIGHT hemidiaphragm. Mild haziness at the lung bases is due to overlying soft tissue. Lung bases were normal on a recent CT of 03/13/2020. No pleural effusion or pneumothorax . Cardiac size: Normal. Mediastinum/Aorta: Normal mediastinum. No osseous abnormality seen. XR/XR chest 1V portable [id number] IMPRESSION: Unremarkable portable chest.
[2020-03-14 19:34] VITALS: BP 115/68; PULSE 97; RESP 26; TEMP 36.3; O2SAT 97
[2020-03-14 23:34] VITALS: BP 109/66; PULSE 101; RESP 18; TEMP 37.2; O2SAT 93
[2020-03-15] MEDS: piperacillin-tazobactam 3.375 GM in sodium chloride 0.9% (plus) 50 ML IV ×2 (00:29→08:55)
[2020-03-15] MEDS: sodium chloride 0.9% 1,000 ML 125 ML IV (00:29)
[2020-03-15 04:00] VITALS: BP 126/75; PULSE 108; RESP 22; TEMP 38.7; O2SAT 95
[2020-03-15] MEDS: acetaminophen 325 mg Tablet 650 MG PO (04:24)
[2020-03-15 06:50] LABS: Basophils % 0.2 %; Eosinophils # 0.1 10^3/uL (0.0-0.8); Hematocrit 28.1 % (37.0-47.0); Hemoglobin 9.1 g/dL (11.5-15.3); Lymphocytes # 0.6 10^3/uL (0.8-4.8); Lymphocytes % 7.2 %; Mean Corpuscular HGB Conc 32.4 g/dL (30.0-36.0); Mean Corpuscular Hemoglobin 29.6 pg (28.0-34.0); Mean Corpuscular Volume 91.5 fL (81-99); Mean Platelet Volume 11.9 fL (7.4-10.4); Monocytes # 0.1 10^3/uL (0.2-0.9); Monocytes % 1.3 %; Neutrophils # 7.8 10^3/uL (1.8-7.7); Neutrophils % 89.5 %; Nucleated Red Blood Cells % 0 %; Platelet Count 138 10^3/cmm (130-400); Red Blood Count 3.07 10^6/uL (4.1-5.3); Red Cell Distribution Width 13.9 % (12.1-15.1); White Blood Count 8.7 10^3/uL (4.0-10.0)
[2020-03-15 07:00] LABS: INR 1.15 (0.8-1.2)
--- NOTE | 2020-03-15 07:02 | PC.NURSE ---
Shift Summary Pt has slept well through the night with some c/o pain and chills. pt noted to have a temp of 101.7. pt has had good urinary output. pt stated she had been up to the bathroom but then had felt fatigued and was not able to make it to the bathroom, and had urinated in her basin then sat it on her bedside table.
[2020-03-15 07:07] LABS: Lactate Dehydrogenase 198 U/L (135-214)
[2020-03-15 07:11] LABS: Alanine Aminotransferase 77 U/L (0-33); Albumin Level 2.5 g/dL (3.5-5.2); Alkaline Phosphatase 162 IU/L (35-105); Aspartate Amino Transferase 52 U/L (0-32); Blood Urea Nitrogen 7 mg/dL (6-20); Calcium 7.7 mg/dL (8.5-10.5); Carbon Dioxide 21 mmol/L (22-29); Chloride 107 mmol/L (98-107); Glomerular Filtration Rate 103.8 mL/min (90-130); Glucose 102 mg/dL (65-115); Magnesium 1.6 mg/dL (1.7-2.3); Osmolality Calculated 286 mOsm/kg (285-295); Sodium 140 mmol/L (136-145); Total Bilirubin 1.7 mg/dL (0.15-1.2); Total Protein 4.5 g/dL (6.6-8.7)
[2020-03-15 07:17] VITALS: TEMP 37.7
[2020-03-15 07:39] VITALS: BP 106/64; PULSE 92; RESP 16; TEMP 37.2; O2SAT 96
[2020-03-15 08:11] LABS: Slide Review Slide Review Perform
[2020-03-15] MEDS: diphenhydrAMINE 25 mg Capsule PO (08:54)
[2020-03-15] MEDS: pantoprazole 40 mg SDV IVP ×2 (09:33→22:07)
[2020-03-15] MEDS: magnesium sulfate premix 2 GM/50 ML PIGGYBACK IV (10:11)
[2020-03-15] MEDS: potassium chloride ER 10 mEq Tablet 40 MEQ PO (10:13)
[2020-03-15] MEDS: ibuprofen 600 mg Tablet PO ×2 (10:15→17:15)
[2020-03-15 11:23] VITALS: BP 114/64; PULSE 96; RESP 16; TEMP 37.7; O2SAT 94
[2020-03-15] MEDS: predniSONE 20 mg Tablet 40 MG PO (13:15)
[2020-03-15] MEDS: enoxaparin 40 mg/0.4 mL Syringe SUBCUT (13:15)
--- NOTE | 2020-03-15 13:42 | P.PN_ITS ---
Subjective Subjective: Interval history: Dona spiked a significant fever yesterday of 103. She felt significantly worse but now is a little bit better. Nausea is present but not severe. She has developed a generalized rash. Medications: Reviewed: Yes Vitals/I&O/Wt Last Vital Signs Temp 99.8 F H 03/15/20 11:23 Pulse 96 03/15/20 11:23 Resp 16 03/15/20 11:23 BP 114/64 03/15/20 11:23 Pulse Ox 94 03/15/20 11:23 03/14/20 03/15/20 03/15/20 22:59 06:59 14:59 Intake Total 1780 / 3348 62.5 / 3410.5 730 / 730 Output Total 300 / 300 Balance 1780 / 3348 -237.5 / 3110.5 730 / 730 Physical Exam Narrative: EXAM NARRATIVE: General exam is no apparent distress Cardiovascular regular rate and rhythm, no murmur. Lungs clear no wheezing or crackles Abdomen is soft with positive bowel sounds. No obvious organomegaly was deferred Extremities no cyanosis clubbing or edema. Small circular ecchymotic area right upper thigh with some surrounding induration is noted. Indurated area now white. Surrounding erythema to this and some generalized erythematous rash over the her body. She has some swelling as well in her hands and feet. Data : 03/15/20 06:06 03/15/20 06:06 A&P Assessment and plan (1) Acute hypotension: Fluid resuscitation started in the emergency department secondary to elevated lactate, and hypotension. This corrected her hypotension. Technically, she meets sepsis criteria with hypotension, leukocytosis, possible site of infection right thigh. This is now clearly a spider envenomation site currently in her right upper thigh. No evidence of secondary infection currently. Haptoglobin has been normal l. INR has been elevated but appears to be improvi ng. Bilirubin drifting down. All consistent with some hemolysis and DIC. Discontinue vancomycin and Zosyn. Will place on doxycycline. Cultures are negative and no indication for continued IV antibiotics. Initiate prednisone secondary to systemic effects of toxin. Continue supportive care secondary to envenomation Status: Acute (2) Leukocytosis: Resolved Still febrile Status: Acute (3) Transaminitis: Hepatitis panel, abdominal ultrasound normal. Secondary to elevated bilirubin, continued fever CT abdomen pelvis was checked which was normal. Some elevations remain but overall stable without progression Status: Acute Additional A&P Information Hypokalemia, supplement today. Hypomagnesemia, supplement full code Lovenox for DVT prophylaxis At this point fluids discontinued Attestations Medical Necessity Statement*: Needs continued hospitalization for supportive care secondary to systemic effects of envenomation from arachnid Coding Level of Care Code Acute Ethylbenzene Converter Helper for [facility] Fwd Diagnoses Acute hypotension I95.9 Leukocytosis D72.829 Transaminitis R74.0
[2020-03-15 15:33] VITALS: BP 104/64; PULSE 87; RESP 16; TEMP 36.8; O2SAT 97
[2020-03-15] MEDS: doxycycline 100 mg Tablet PO (17:16)
[2020-03-15 23:33] VITALS: BP 113/72; PULSE 86; RESP 18; TEMP 37.2; O2SAT 94
[2020-03-16 04:00] VITALS: BP 109/69; PULSE 72; RESP 16; TEMP 36.9; O2SAT 98
[2020-03-16] MEDS: ibuprofen 600 mg Tablet PO (05:02)
--- NOTE | 2020-03-16 06:06 | PC.NURSE ---
Shift Summary Pt slept well throughout the night. Pt's highest temperature was 99.0*F. Pt was given ibuprofen for pain rather than fever.
[2020-03-16 07:23] LABS: Basophils # 0.1 10^3/uL (0.0-0.1); Basophils % 0.4 %; Eosinophils # 0.1 10^3/uL (0.0-0.8); Eosinophils % 0.5 %; Hematocrit 27.9 % (37.0-47.0); Lymphocytes # 1.1 10^3/uL (0.8-4.8); Lymphocytes % 9.8 %; Mean Corpuscular HGB Conc 32.3 g/dL (30.0-36.0); Mean Corpuscular Hemoglobin 29.6 pg (28.0-34.0); Mean Corpuscular Volume 91.8 fL (81-99); Mean Platelet Volume 12.1 fL (7.4-10.4); Monocytes # 0.2 10^3/uL (0.2-0.9); Monocytes % 1.7 %; Neutrophils % 85.4 %; Nucleated Red Blood Cells % 0 %; Platelet Count 159 10^3/cmm (130-400); Red Blood Count 3.04 10^6/uL (4.1-5.3); Red Cell Distribution Width 14.3 % (12.1-15.1); White Blood Count 11.7 10^3/uL (4.0-10.0)
[2020-03-16 07:45] VITALS: BP 103/65; PULSE 82; RESP 18; TEMP 36.9; O2SAT 96
[2020-03-16 07:50] LABS: Magnesium 2.1 mg/dL (1.7-2.3)
[2020-03-16 07:51] LABS: Anion Gap 14.3 (5-19); Blood Urea Nitrogen 11 mg/dL (6-20); Calcium 8.3 mg/dL (8.5-10.5); Carbon Dioxide 24 mmol/L (22-29); Chloride 106 mmol/L (98-107); Glomerular Filtration Rate 103.8 mL/min (90-130); Glucose 109 mg/dL (65-115); Osmolality Calculated 289 mOsm/kg (285-295); Potassium 3.3 mmol/L (3.5-5.1); Sodium 141 mmol/L (136-145)
[2020-03-16] MEDS: predniSONE 20 mg Tablet 40 MG PO (08:46)
[2020-03-16] MEDS: doxycycline 100 mg Tablet PO (08:46)
[2020-03-16] MEDS: pantoprazole 40 mg SDV IVP (09:11)
--- NOTE | 2020-03-16 10:55 | P.DS_ITS ---
Discharge Providers Date of Admission: 03/12/20 15:32 Date of Discharge: March 16, 2020 Attending Provider at Admission: Gagandeep Masterson MD Attending Provider at Discharge: Gagandeep Masterson MD Diagnoses at Discharge Discharge Diagnosis (1) Acute hypotension: Status: Acute Problem details: Resolved (2) Leukocytosis: Status: Acute Problem details: Resolved (3) Transaminitis: Status: Acute Problem details: Secondary to spider envenomation Reason for Visit Reason for Visit: insect bite Hospital Course Hospital Course: Dona is a 54-year-old white female who presented to the hospital with history of fevers, generalized aching. She was found to have a bruise on her right thigh which later became clearly a spider bite with central eschar surrounding erythema and systemic effects. During her hospital course increasing LFTs, fever, nausea, anemia was noted. Elevated d-dimer and INR consistent with limited DIC. Haptoglobin did not decrease. By the end of her hospital stay her symptoms had abated and she had had no fevers in 24 hours. She will discharge on doxycycline, prednisone, and follow-up with primary care provider in 3 days with CBC and BMP. She should return for any worsening. Importance of follow-up described in detail. Other studies while in the hospital included abdominal ultrasound, soft tissue ultrasound, abdominal pelvis CT, chest x-ray, and blood culture all of which showed no overall concern. Physical Exam Narrative: EXAM NARRATIVE: General exam no apparent distress Cardiovascular regular rate and rhythm without murmur Lungs clear Abdomen is soft with positive bowel sounds Extremities no cyanosis clubbing or edema. Right upper thigh with black central eschar with surrounding blanching/whiteness and another ring of surrounding erythema that seem to be decreasing in intensity. Discharge Data Data Completed and Pending: Completed Studies During Hospitalization Category Date Time Status CT abdomen pelvis w con* [id number] Rout ine Cat Scan 03/13/20 09:37 Completed XR chest 1V moi ble [id number] Routine Exams 03/14/20 16:10 Completed XR femur RT min 2 V* [id number] Stat Exams 03/12/20 11:44 Completed US abdomen comple te* [id number] Urgent Ultrasound 03/12/20 14:15 Completed US soft tissue/ex tremity [id number] Stat Ultrasound 03/12/20 12:29 Completed Pending at discharge Category Date Time Status Blood Culture Sta t Lab 03/12/20 13:20 Results Labs from last 24 hours 03/16/20 03/16/20 03/16/20 06:08 06:08 06:08 WBC 11.7 H RBC 3.04 L Hgb 9.0 L Hct 27.9 L MCV 91.8 MCH 29.6 MCHC 32.3 RDW 14.3 Plt Count 159 MPV 12.1 H Neut % (Auto) 85.4 Lymph % (Auto) 9.8 [place] % (Auto) 1.7 Eos % (Auto) 0.5 Baso % (Auto) 0.4 Neut # (Auto) 10.0 H Lymph # (Auto) 1.1 [place] # (Auto) 0.2 Eos # (Auto) 0.1 Baso # (Auto) 0.1 Nucleated RBC % (a uto) 0 Nucleated RBCs # 0.0 Sodium 141 Potassium 3.3 L Chloride 106 Carbon Dioxide 24 Anion Gap 14.3 BUN 11 Creatinine 0.6 GFR Calculation 103.8 Glucose 109 Calculated Osmolal ity 289 Calcium 8.3 L Magnesium 2.1 Vitals: Last Vital Signs Temp 98.4 F 03/16/20 07:45 Pulse 82 03/16/20 07:45 Resp 18 03/16/20 07:45 BP 103/65 03/16/20 07:45 Pulse Ox 96 03/16/20 07:45 Discharge Plan Discharge Patient Disposition: Home, Self-Care Condition: Stable Prescriptions: New prednisone 20 mg Tablet 40 mg PO DAILY Qty: 10 RF: 0 doxycycline monohydrate 100 mg Tablet 100 mg PO BID Qty: 14 RF: 0 Discharge Orders: Discharge Order (Routine); Ordered 03/16/20 Ordered By: Gagandeep Masterson Referrals: Darío Moreno NP [Referring] - (Call Wednesday to make a follow up appointment at [facility]. Let them know that you will need to be set up with a primary care physician and this clinic does sliding scale. Faxed to the clinic.) Discharge Diet: Regular Discharge Activity: Resume usual activity Patient Instructions: Brown Recluse Spider Bite, Doxycycline (By mouth), Prednisone (By mouth) Activity Restrictions/Additional Instructions: Please arrange for primary care provider follow-up Wednesday or Wednesday, with CBC and CMP. Will need a wound check at that time. Discharge Attestations Time Spent in Discharge Care*: greater than 30 min Quality Metrics Clinical Quality Measures During this hospital stay, did patient experience: None Coding Level of Care Code Acute Appeals Board Referee for Chg Fwd Diagnoses Acute hypotension I95.9 Leukocytosis D72.829 Transaminitis R74.0
[2020-03-16 11:01] VITALS: BP 103/65; PULSE 82; RESP 18; TEMP 36.9; O2SAT 96
[2020-03-16] MEDS: potassium chloride ER 10 mEq Tablet 40 MEQ PO (11:13)
[2020-03-16 11:22] VITALS: BP 112/72; PULSE 91; RESP 20; TEMP 37.1; O2SAT 96
[2020-03-16 12:28] VITALS: BP 112/72; PULSE 91; RESP 20; TEMP 37.1; O2SAT 96
== END 2020-03-16 12:28 | disposition home or self-care (01) | DRG 872 ==
LOC: ER 13:46 → MEDSURG 15:51
PROVIDERS: Emergency Medicine; Admitting Provider Internal Medicine; Visit Provider Internal Medicine
DX: A41.9 Sepsis, unspecified organism (principal); T63.391A Toxic effect of venom of other spider, accidental (unintentional), initial encounter; Y92.009 Unspecified place in unspecified non-institutional (private) residence as the place of occurrence of the external cause; E87.6 Hypokalemia; E83.42 Hypomagnesemia; F17.210 Nicotine dependence, cigarettes, uncomplicated
CPT/HCPCS: 12345; 36415; 71045; 73552; 74177; 76700; 76882; 80048; 80053; 80202; 81001; 82550; 83010; 83605; 83615; 83735; 84145; 84484; 85025; 85378; 85610; 85730; 86705; 86706; 86709; 86803; 87040; 87340; 93005; 96372; 96375; 99283; C9113; J0131; J1650; J2405; J2543; J3370; J3475; J7030; J7050; J7512; Q0162; Q9967

== ENCOUNTER 2020-03-25 15:22 | Outpatient (CLI) | payer SELFPAY ==
[2020-03-25 17:09] LABS: INR 0.94 (0.8-1.2)
[2020-03-25 17:14] LABS: Basophils # 0.1 10^3/uL (0.0-0.1); Basophils % 0.6 %; Eosinophils # 0.2 10^3/uL (0.0-0.8); Eosinophils % 1.6 %; Hematocrit 28.7 % (37.0-47.0); Hemoglobin 8.6 g/dL (11.5-15.3); Lymphocytes # 1.8 10^3/uL (0.8-4.8); Lymphocytes % 12.7 %; Mean Corpuscular Hemoglobin 29.8 pg (28.0-34.0); Mean Corpuscular Volume 99.3 fL (81-99); Monocytes # 0.4 10^3/uL (0.2-0.9); Monocytes % 2.5 %; Neutrophils # 11.2 10^3/uL (1.8-7.7); Neutrophils % 80.1 %; Nucleated Red Blood Cells % 0.2 %; Platelet Count 415 10^3/cmm (130-400); Red Blood Count 2.89 10^6/uL (4.1-5.3); Red Cell Distribution Width 15.5 % (12.1-15.1); White Blood Count 13.9 10^3/uL (4.0-10.0)
[2020-03-25 17:16] LABS: Lactate Dehydrogenase 408 U/L (135-214)
[2020-03-25 17:36] LABS: LAB Peripheral Smear Sent for Review
[2020-03-25 17:51] LABS: Hepatitis A Antibody IgM Non-Reactive (Nonreactive); Hepatitis B Core IgM Non-Reactive (Nonreactive); Hepatitis B Surface Antigen Non-Reactive (Nonreactive); Hepatitis C Virus Antibody Non-Reactive (Nonreactive)
== END 2020-03-25 15:23 | disposition home or self-care (01) ==
LOC: LAB 15:26
PROVIDERS: PCP Nurse Practitioner Family; Visit Provider Nurse Practitioner Family
DX: Z01.89 Encounter for other specified special examinations (principal)
CPT/HCPCS: 36415; 80074; 83010; 83615; 85025; 85045; 85610; 86850; 86900

== ENCOUNTER 2020-03-29 13:14 | Outpatient (CLI) | payer SELFPAY | END 2020-03-29 13:15 | disposition home or self-care (01) | LOC: WOUND 13:15 | PROVIDERS: PCP Nurse Practitioner Family; Visit Provider Surgery | DX: M31.9 Necrotizing vasculopathy, unspecified (principal); L97.819 Non-pressure chronic ulcer of other part of right lower leg with unspecified severity | CPT/HCPCS: G0463 ==

== ENCOUNTER 2020-04-01 11:18 | Day surgery (SDC) | payer SELFPAY ==
[2020-03-29 14:53] VITALS: BMI 24.1
[2020-04-01] VITALS (7 sets, daily range): BP systolic 100–130; BP diastolic 49–76; PULSE 70–97; RESP 14–20; TEMP 36.1–36.9; O2SAT 97–100
[2020-04-01] MEDS: sodium chloride 0.9% 1,000 ML 30 ML IV (11:53)
--- NOTE | 2020-04-01 12:27 | ANES.PREANE2 ---
Pre-Anesthetic Assessment Pre-Anesthetic Assessment: Height/Weight: Height 1.7 m Weight 69.853 kg Temp Pulse Resp BP Pulse Ox 97.6 F 97 18 100/69 97 04/01/20 11:34 04/01/20 11:34 04/01/20 11:34 04/01/20 11:34 04/01/20 11:34 Preop Diagnosis: Right thigh wound Proposed Procedure: Operation Date: 04/01/20 12:45 Proposed Procedures p Debridement Right Thigh Wound(Right) - Carson Morales MD Was Beta Abril taken within 24 hours: N/A Last intake: Intake Last Liquid Date 03/31/20 Last Liquid Time 23:30 Last Solid Date 03/31/20 Last Solid Time 19:00 Social: Social History: No alcohol and No tobacco Exam: Pre-Anes Outpt Exam: alert, oriented x 3, clear to auscultation bilaterally and regular rate & rhythm Airway: Submandibular: WNL Cervical ROM: WNL MP: 1 Dentition: Full History/ROS: No significant complaints Pulmonary: Pulmonary: None reported CV/HEM: CV/HEM: None reported : : None reported Hepatic: Hepatic: None reported GI: GI: None reported Metabolic: Metabolic: None reported Musc/skel: Musc/skel: None reported Neuropsych: Neuropsych: None reported Anesthetic Plan: ASA status: 1 Anesthesia: General Meds/Allergies Current Medications: Current Medications Generic Name Dose Route Start Last Admin Trade Name Freq PRN Reason Stop Dose Admin Sodium Chloride 1,000 mls @ 30 ml s/hr 04/01/20 08:15 04/01/20 11:53 Sodium Chloride 0.9% IV 04/02/20 08:14 30 mls/hr .Q24H ALEX Administration PFSH Anesthesia PFSH: Medical History (Updated 03/17/20 @ 00:00 by ) No active medical problems Surgical History (Updated 03/12/20 @ 16:09 by Gagandeep Masterson MD) History of No history of previous surgery Family History (Updated 03/12/20 @ 16:09 by Gagandeep Masterson MD) Other Cancer Social History (Updated 03/12/20 @ 16:09 by Gagandeep Masterson MD) Smoking and tobacco status: current every day smoker Alcohol intake: current Alcohol intake frequency: few times a month Data Anesthesia Cardiac Studies: No Data to Display
--- NOTE | 2020-04-01 13:27 | W.PM.OPSUD ---
Surgery/Procedure H&P Update DATE OF PROCEDURE: April 01, 2020 DATE H&P PERFORMED: 03/29/20 H&P UPDATE INFORMATION: I have reviewed H&P completed within last 30 days, I have examined patient prior to procedure and No changes to prior documentation PREOP DIAGNOSIS: Right thigh wound PRIMARY INDICATION FOR PROCEDURE: The same PLANNED PROCEDURE: Operation Date: 04/01/20 12:45 Proposed Procedures p Debridement Right Thigh Wound(Right) - Carson Morales MD
[2020-04-01] MEDS: lidocaine 2% INJ 20 mL INJECTION (14:17)
--- NOTE | 2020-04-01 14:22 | SUR.OPER ---
PRE SURGICAL WOUND MEASURES 5.5 X 2.2 X 0.2CM POST SURGICAL WOUND MEASURES 12 X 9 X 2.3CM.
--- NOTE | 2020-04-01 14:31 | P.OP_ITS ---
Operative Report Date of procedure: April 01, 2020 Pre-op Diagnosis: Right thigh wound Post-op diagnosis: same Post-op Diagnosis: Pre-debridement measurements 5.5 x 2.2 x 0.2 cm Post debridement measurements 12 x 9 x [address] to the fascia Post-op Findings: Inflamed and indurated subcutaneous tissues Procedure Done: Excision of right thigh wound with sharp debridement all the way to the fascial layer of anterior right thigh. Implants: Packing with mini Kerlix impregnated and lidocaine 2% and a large piece of Surgicel Specimens removed/disposition: Right thigh wound marked short sutures superior and long sutures lateral Surgeon: Carson Morales Wet Mixer: technician helper instrument Mallory Circulating nurse Petra Anesthesia: General (LMA special client bus driver Smart) Estimated blood loss (mL): 10 Complications: No immediate complication Condition: stable Disposition: same day Brief History: This is a pleasant 54 years old female patient presented with history of a spider bite before 20 days ago and got worse, patient was referred to me to the wound care center for further evaluation and was found to have a large indurated right thigh wound that required debridement in the OR. After thorough history physical examination reviewing the chart and images with my personal interpretation.I did drug and alcohol counselor the patient for debridement of right thigh wound in the OR and she agreed to proceed. An informed consent per chart Procedure: After identifying the patient holding area, the right lower extremity was marked before the procedure by myself, patient was then taken to the operative suite, was placed in supine position, IV antibiotics were given per protocol, LMA was inserted by the anesthesia provider, prep and drape of the right thigh region was done under the usual sterile technique. Time-out was done verifying the patient's name/date of /planned procedure and destination after the procedure, all were in agreement. Started by excising the unhealthy necrotic indurated tissues of the wound including the central eschar.Incision was created at the skin level and went all the way down to the healthier subcutaneous tissues and fascial layer,wound mass was excised including unhealthy tissues, followed by sharp debridment. There was no evidence of pus rather than indurated and inflamed subcutaneous tissues Wound measurements: Pre-debridement measurements 5.5 x 2.2 x 0.2 cm Post debridement measurements 12 x 9 x 2[address] to the fascia Tissues were sent for permanent pathology Extensive and copious irrigation of the wound was done with warm saline, followed by appropriate hemostasis, packing of the wound was done with large piece of Surgicel followed by mini Kerlix impregnated in lidocaine 2%, followed by ABDs, Kerlix and Srini wrap. Patient tolerated the procedure well, count of instruments, needles and sponges were completed at the end of the procedure. Patient was then taken to the recovery area in stable condition after extubation. I was present for the whole entire procedure
[2020-04-01] MEDS: ondansetron 2 mg/ML SDV 2 mL 4 MG IVP (14:43)
--- NOTE | 2020-04-01 14:45 | SUR.PHASEI ---
1437 PATIENT TO PACU. RR EVEN AND UNLABORED. DRESSING TO RIGHT THIGH, CDI.
--- NOTE | 2020-04-01 14:56 | SUR.PHASEI ---
1452 PATIENT TO OPS. NO DISTRESS. NAUSEA IMPROVED. DRESSING TO RIGHT THIGH, CDI.
[2020-04-01] MEDS: HYDROcodone-acetaminophen 5-325 mg Tablet 1 TAB PO (15:20)
[2020-04-01] MEDS: sodium chloride 0.9% 500 ML 999 ML IV (15:39)
== END 2020-04-01 15:30 | disposition home or self-care (01) ==
PROVIDERS: PCP Nurse Practitioner Family; Visit Provider Surgery
PROC: (CPT 11043; principal; 2020-04-01 12:35)
DX: S71.151A Open bite, right thigh, initial encounter (principal); W57.XXXA Bitten or stung by nonvenomous insect and other nonvenomous arthropods, initial encounter; F17.210 Nicotine dependence, cigarettes, uncomplicated
CPT/HCPCS: 11043; 12345; 88305; J0131; J0690; J2405; J2704; J3010; J7030; J7040

== ENCOUNTER 2020-04-05 13:48 | Outpatient (CLI) | payer SELFPAY | END 2020-04-05 13:49 | disposition home or self-care (01) | LOC: WOUND 13:51 | PROVIDERS: PCP Nurse Practitioner Family; Visit Provider Surgery | DX: L08.9 Local infection of the skin and subcutaneous tissue, unspecified (principal); L97.813 Non-pressure chronic ulcer of other part of right lower leg with necrosis of muscle | CPT/HCPCS: 11043; 11046 ==

== ENCOUNTER 2020-04-12 14:23 | Outpatient (CLI) | payer SELFPAY | END 2020-04-12 14:24 | disposition home or self-care (01) | LOC: WOUND 14:24 | PROVIDERS: PCP Nurse Practitioner Family; Visit Provider Surgery | DX: T63.331A Toxic effect of venom of brown recluse spider, accidental (unintentional), initial encounter (principal); Y92.9 Unspecified place or not applicable | CPT/HCPCS: 11043; 11046 ==

== ENCOUNTER 2020-04-16 16:20 | Outpatient (CLI) | payer SELFPAY | END 2020-04-16 16:21 | disposition home or self-care (01) | LOC: WOUND 16:21 | PROVIDERS: PCP Nurse Practitioner Family; Visit Provider Thoracic Surgery (Cardiothoracic Vascular Surgery) | DX: T63.331A Toxic effect of venom of brown recluse spider, accidental (unintentional), initial encounter (principal); Y92.9 Unspecified place or not applicable | CPT/HCPCS: 97606 ==

== ENCOUNTER 2020-04-19 14:49 | Outpatient (CLI) | payer SELFPAY | END 2020-04-19 14:50 | disposition home or self-care (01) | LOC: WOUND 14:50 | PROVIDERS: PCP Nurse Practitioner Family; Visit Provider Surgery | DX: T63.331A Toxic effect of venom of brown recluse spider, accidental (unintentional), initial encounter (principal); Y92.9 Unspecified place or not applicable | CPT/HCPCS: 11042; 11045 ==

== ENCOUNTER 2020-04-23 13:07 | Outpatient (CLI) | payer SELFPAY | END 2020-04-23 13:08 | disposition home or self-care (01) | LOC: WOUND 13:07 | PROVIDERS: PCP Nurse Practitioner Family; Visit Provider Thoracic Surgery (Cardiothoracic Vascular Surgery) | DX: L97.812 Non-pressure chronic ulcer of other part of right lower leg with fat layer exposed | CPT/HCPCS: 97605 ==

== ENCOUNTER 2020-04-26 14:42 | Outpatient (CLI) | payer SELFPAY | END 2020-04-26 14:43 | disposition home or self-care (01) | LOC: WOUND 14:43 | PROVIDERS: PCP Nurse Practitioner Family; Visit Provider Thoracic Surgery (Cardiothoracic Vascular Surgery) | DX: T63.331A Toxic effect of venom of brown recluse spider, accidental (unintentional), initial encounter (principal); Y92.9 Unspecified place or not applicable | CPT/HCPCS: 11042; 11045; 97605 ==

== ENCOUNTER 2020-04-30 13:22 | Outpatient (CLI) | payer SELFPAY | END 2020-04-30 13:23 | disposition home or self-care (01) | LOC: WOUND 13:22 | PROVIDERS: PCP Nurse Practitioner Family; Visit Provider Thoracic Surgery (Cardiothoracic Vascular Surgery) | DX: T63.331A Toxic effect of venom of brown recluse spider, accidental (unintentional), initial encounter (principal); Y92.9 Unspecified place or not applicable | CPT/HCPCS: 97605 ==

== ENCOUNTER 2020-05-03 15:10 | Outpatient (CLI) | payer SELFPAY | END 2020-05-03 15:11 | disposition home or self-care (01) | LOC: WOUND 15:11 | PROVIDERS: PCP Nurse Practitioner Family; Visit Provider Surgery | DX: T63.331A Toxic effect of venom of brown recluse spider, accidental (unintentional), initial encounter (principal); Y92.9 Unspecified place or not applicable | CPT/HCPCS: 97597; 97598 ==

== ENCOUNTER 2020-05-07 15:41 | Outpatient (CLI) | payer SELFPAY | END 2020-05-07 15:42 | disposition home or self-care (01) | LOC: WOUND 15:41 | PROVIDERS: PCP Nurse Practitioner Family; Visit Provider Nurse Practitioner Family | DX: T63.331A Toxic effect of venom of brown recluse spider, accidental (unintentional), initial encounter (principal); Y92.9 Unspecified place or not applicable | CPT/HCPCS: 97605 ==

== ENCOUNTER 2020-05-10 15:45 | Outpatient (CLI) | payer SELFPAY | END 2020-05-10 15:46 | disposition home or self-care (01) | LOC: WOUND 15:45 | PROVIDERS: PCP Nurse Practitioner Family; Visit Provider Surgery | DX: T63.331A Toxic effect of venom of brown recluse spider, accidental (unintentional), initial encounter (principal); Y92.9 Unspecified place or not applicable | CPT/HCPCS: 97597; 97598 ==

== ENCOUNTER 2020-05-13 10:41 | Outpatient (CLI) | payer SELFPAY | END 2020-05-13 10:42 | disposition home or self-care (01) | LOC: WOUND 10:41 | PROVIDERS: PCP Nurse Practitioner Family; Visit Provider Emergency Medicine | DX: T63.331A Toxic effect of venom of brown recluse spider, accidental (unintentional), initial encounter (principal); Y92.89 Other specified places as the place of occurrence of the external cause; L97.812 Non-pressure chronic ulcer of other part of right lower leg with fat layer exposed | CPT/HCPCS: 97605 ==

== ENCOUNTER 2020-05-17 15:24 | Outpatient (CLI) | payer SELFPAY | END 2020-05-17 15:25 | disposition home or self-care (01) | LOC: WOUND 15:25 | PROVIDERS: PCP Nurse Practitioner Family; Visit Provider Surgery | DX: T63.331A Toxic effect of venom of brown recluse spider, accidental (unintentional), initial encounter (principal); Y92.89 Other specified places as the place of occurrence of the external cause | CPT/HCPCS: 11043 ==

== ENCOUNTER 2020-05-21 15:28 | Outpatient (RCR) | payer SELFPAY | END 2020-06-19 23:59 | disposition home or self-care (01) | LOC: WOUND 15:28 | PROVIDERS: PCP Nurse Practitioner Family; Visit Provider Thoracic Surgery (Cardiothoracic Vascular Surgery) | DX: L97.812 Non-pressure chronic ulcer of other part of right lower leg with fat layer exposed (principal); T63.331D Toxic effect of venom of brown recluse spider, accidental (unintentional), subsequent encounter | CPT/HCPCS: 97605 ==

== ENCOUNTER 2020-05-24 14:12 | Outpatient (CLI) | payer SELFPAY | END 2020-05-24 14:13 | disposition home or self-care (01) | LOC: WOUND 14:13 | PROVIDERS: PCP Nurse Practitioner Family; Visit Provider Surgery | DX: T63.331A Toxic effect of venom of brown recluse spider, accidental (unintentional), initial encounter (principal); Y92.9 Unspecified place or not applicable | CPT/HCPCS: 97597; 97605 ==

== ENCOUNTER 2020-05-28 14:48 | Outpatient (CLI) | payer SELFPAY | END 2020-05-28 14:49 | disposition home or self-care (01) | LOC: WOUND 14:48 | PROVIDERS: PCP Nurse Practitioner Family; Visit Provider Thoracic Surgery (Cardiothoracic Vascular Surgery) | DX: L97.812 Non-pressure chronic ulcer of other part of right lower leg with fat layer exposed (principal) | CPT/HCPCS: 97605 ==

== ENCOUNTER 2020-05-31 14:41 | Outpatient (CLI) | payer SELFPAY | END 2020-05-31 14:42 | disposition home or self-care (01) | LOC: WOUND 14:41 | PROVIDERS: PCP Nurse Practitioner Family; Visit Provider Surgery | DX: T63.331A Toxic effect of venom of brown recluse spider, accidental (unintentional), initial encounter (principal); Y92.89 Other specified places as the place of occurrence of the external cause | CPT/HCPCS: 11042 ==

== ENCOUNTER 2020-06-07 13:25 | Outpatient (CLI) | payer SELFPAY | END 2020-06-07 13:26 | disposition home or self-care (01) | LOC: WOUND 13:27 | PROVIDERS: PCP Nurse Practitioner Family; Visit Provider Nurse Practitioner Family | DX: T63.331A Toxic effect of venom of brown recluse spider, accidental (unintentional), initial encounter (principal); Y92.89 Other specified places as the place of occurrence of the external cause | CPT/HCPCS: 11042 ==

== ENCOUNTER 2020-06-14 13:55 | Outpatient (CLI) | payer SELFPAY | END 2020-06-14 13:56 | disposition home or self-care (01) | LOC: WOUND 13:55 | PROVIDERS: PCP Nurse Practitioner Family; Visit Provider Surgery | DX: T63.331A Toxic effect of venom of brown recluse spider, accidental (unintentional), initial encounter (principal); Y93.9 Activity, unspecified | CPT/HCPCS: 97597 ==

== ENCOUNTER 2020-06-21 14:14 | Outpatient (CLI) | payer SELFPAY | END 2020-06-21 14:15 | disposition home or self-care (01) | LOC: WOUND 14:14 | PROVIDERS: PCP Nurse Practitioner Family; Visit Provider Surgery | DX: Z09 Encounter for follow-up examination after completed treatment for conditions other than malignant neoplasm (principal) | CPT/HCPCS: 99212 ==

== ENCOUNTER 2022-12-23 13:52 | Outpatient (CLI) | payer BC, SELFPAY ==
--- NOTE | 2022-12-23 14:04 | CT_ITS ---
WS: [id number] LDCT LUNG CANCER SCREENING HISTORY: NICOTINE DEPENDENCE, CIGARETTES TECHNIQUE: Axial imaging performed from the apices to 1 cm below the costophrenic angles. Coronal and sagittal reformats are submitted with axial MIP series. All CT scans at [facility] use at least one of these dose optimization techniques: automated exposure control; mA and/or kV adjustment per patient size (includes targeted exams where dose is matched to clinical indication); or iterativ e reconstruction. DLP: 81.20 mGy.cm DIvol: Mean CTDIvol: 1.60 (mGy) COMPARISON: None available. Diagnostic quality: Satisfactory Lungs: No pulmonary nodules or mass. Benign granuloma LEFT lower lobe. No endobronchial lesions. Heart: Normal size heart with no pericardial effusion.. Other findings: Minimal atherosclerosis aorta. No mediastinal or hilar adenopathy. Small hiatal herni a. No adrenal mass. CT/CT lung screening [id number] IMPRESSION: LUNG-RADS: 1-Negative FOLLOW UP: 12 Month: Continue annual screening with LDCT OTHER FINDINGS (S MODIFIER): None.
--- NOTE | 2022-12-23 14:15 | MM_ITS ---
WS: [id number] BILATERAL 3D TOMOSYNTHESIS DIGITAL SCREENING MAMMOGRAPHY WITH CAD CLINICAL INFORMATION: SCREENING HISTORY: Screening mammogram. No current complaints. COMPARISON: 2017 TECHNIQUE: Bilateral CC and MLO views. FINDINGS: Scattered fibroglandular densities bilaterally. No suspicious focal mass, asymmetry, calcifications, or architectural distortion. No evidence of malignancy. Biopsy marker RIGHT breast. A few incidental punctate and lucent centered calcifications. MM/[place] [id number] IMPRESSION: BI-RADS: 2-Benign FOLLOW UP: 1 Year Follow-up Recommend return to annual screening mammography.
== END 2022-12-23 13:53 | disposition home or self-care (01) ==
LOC: RAD 13:56
PROVIDERS: PCP Family Medicine; Visit Provider Family Medicine
DX: Z12.31 Encounter for screening mammogram for malignant neoplasm of breast (principal); Z78.0 Asymptomatic menopausal state; Z87.891 Personal history of nicotine dependence; Z12.2 Encounter for screening for malignant neoplasm of respiratory organs
CPT/HCPCS: 71271; 77063; 77067